=== PATIENT | female | born 1995 | race Caucasian/White ===

== ENCOUNTER 2016-11-12 17:12 | Emergency (ER) | payer SELFPAY ==
[2016-11-12 17:22] VITALS: BP 119/64; PULSE 90; RESP 18; TEMP 98; O2SAT 100
[2016-11-12] MEDS: Sodium Chloride 0.9% 1,000 ML IV ONE (17:50)
[2016-11-12 18:02] LABS: BASO % 0.4 % (0.0-2.0); EOS # 0.1 K/uL (0.0-0.7); EOS % 1.4 % (0.0-4.0); HEMATOCRIT 38.8 % (34.0-47.0); LYMPH # 2.6 K/uL (1.0-4.3); LYMPH % 33.5 % (20.0-40.0); MEAN CELL VOLUME 93.4 fL (81.0-99.0); MEAN CORPUSCULAR HEMOGLOBIN 31.3 pg (27.0-31.0); MEAN CORPUSCULAR HGB CONC 33.5 g/dL (33.0-37.0); MEAN PLATELET VOLUME 9.4 fL (7.2-11.7); MONO # 0.5 K/uL (0.0-0.8); MONO % 5.8 % (0.0-10.0); NRBC % 0.1 % (0.0-2.0); RED CELL DISTRIBUTION WIDTH 12.9 % (11.5-14.5); WHITE BLOOD COUNT 7.9 K/uL (4.8-10.8)
[2016-11-12 18:06] LABS: RBC URINE 2 /hpf (0-3); URINE BACTERIA RARE (<OCC); URINE BILIRUBIN NEGATIVE (NEGATIVE); URINE BLOOD NEGATIVE (NEGATIVE); URINE COLOR Yellow (YELLOW); URINE GLUCOSE (UA) NORMAL (Normal); URINE KETONE NEGATIVE (NEGATIVE); URINE LEUKOCYTE ESTERASE NEG Leu/uL (Negative); URINE PROTEIN NEGATIVE (NEGATIVE); URINE UROBILINOGEN NORMAL mg/dL (0.2-1.0); WBC URINE 2 /hpf (0-5)
[2016-11-12 18:09] LABS: CHLORIDE 99 mmol/L (98-107); SODIUM 134 mmol/L (132-148)
[2016-11-12 18:11] LABS: GFR AFRICAN-AMERICAN > 60
[2016-11-12 18:12] LABS: ALB/GLOB RATIO 1.2 (1.0-2.1); ALKALINE PHOSPHATASE 35 U/L (38-126); ALT/SGPT 15 U/L (9-52); AST/SGOT 31 U/L (14-36); BILIRUBIN,TOTAL 0.7 mg/dL (0.2-1.3); BLOOD UREA NITROGEN 7 mg/dL (7-17); CALCIUM 8.4 mg/dl (8.6-10.4); CARBON DIOXIDE 25 mmol/L (22-30); GLUCOSE,RANDOM 81 mg/dL (65-105); TOTAL PROTEIN 7.1 g/dL (6.3-8.3)
--- NOTE | 2016-11-12 18:17 | C.PDOC ---
History Of Present Illness 21-year-old female, (, 10-weeks; LMP 09/01), presents to the emergency department with complaints of generalized weakness for the past few days. Patient denies nausea/vomiting, fevers, chills, shortness of breath, chest pain, dizziness, abdominal pain, vaginal bleeding/discharge or any other associated symptoms. No other complaints at this time. Chief Complaint (Nursing): Dizziness/Lightheaded History Per: Patient History/Exam Limitations: no limitations Onset/Duration Of Symptoms: Days Current Symptoms Are (Timing): Still Present Past Medical History Reviewed: Historical Data, Nursing Documentation, Vital Signs Vital Signs: Last Vital Signs Temp 98 F 11/12/16 17:21 Pulse 90 11/12/16 17:21 Resp 18 11/12/16 17:21 BP 119/64 11/12/16 17:21 Pulse Ox 100 11/12/16 18:50 Family History: States: No Known Family Hx - Social History Hx Alcohol Use: No Hx Substance Use: No - Immunization History Hx Tetanus Toxoid Vaccination: No Hx Influenza Vaccination: Yes Hx Pneumococcal Vaccination: No Review Of Systems Except As Marked, All Systems Reviewed And Found Negative. Constitutional: Positive for: Weakness. Negative for: Fever Cardiovascular: Negative for: Chest Pain Respiratory: Negative for: Cough, Shortness of Breath Gastrointestinal: Negative for: Nausea, Vomiting, Abdominal Pain Genitourinary: Negative for: Dysuria, Hematuria, Vaginal Discharge, Vaginal Bleeding Physical Exam - Physical Exam Appears: Non-toxic, No Acute Distress Skin: Warm, Dry, No Rash Eye(s): bilateral: Normal Inspection Nose: Normal Oral Mucosa: Moist Lips: Normal Appearing Neck: Normal ROM Cardiovascular: Rhythm Regular, No Murmur Respiratory: Normal Breath Sounds, No Accessory Muscle Use Gastrointestinal/Abdominal: Soft, No Tenderness Extremity: Normal ROM Neurological/Psych: Oriented x3 ED Course And Treatment - Laboratory Results Result Diagrams: 11/12/16 17:56 11/12/16 17:56 ECG: Interpreted By Me, Viewed By Me ECG Rhythm: Sinus Rhythm ECG Interpretation: No Acute Changes Rate From EC O2 Sat by Pulse Oximetry: 100 (on RA) Medical Decision Making Medical Decision Makin:50pm - Patient feeling better. Labs reviewed. Patient to be discharged with follow up instructions. Disposition - Disposition Referrals: [facility], [Non-Staff] - Disposition Time: 18:50 Condition: IMPROVED Additional Instructions: Thank you for letting us take care of you today. Your provider was Dr. Healy. The emergency medical care you received today was directed at your acute symptoms. If you were prescribed any medication, please fill it and take as directed. It may take several days for your symptoms to resolve. Return to the Emergency Department if your symptoms worsen, do not improve, or if you have any other problems. Please contact your doctor or call one of the physicians/clinics you have been referred to that are listed on the Patient Visit Information form that is included in your discharge packet. Bring any paperwork you were given at discharge with you along with any medications you are taking to your follow up visit. Our treatment cannot replace ongoing medical care by a primary care provider (PCP) outside of the emergency department. Thank you for allowing the [facility] team to be part of your care today. Follow up with your [facility]UDDER doctor in 3-4 days for re-evaluation. Instructions: (ED) - Clinical Impression Clinical Impression: Musculoskeletal arm pain, - Scribe Statement The provider has reviewed the documentation as recorded by the Damion Alvarez All medical record entries made by the Damion were at my direction and personally dictated by me. I have reviewed the chart and agree that the record accurately reflects my personal performance of the history, physical exam, medical decision making, and the department course for this patient. I have also personally directed, reviewed, and agree with the discharge instructions and disposition.
[2016-11-12 18:26] LABS: TROPONIN I 0.026 ng/mL (0.00-0.120)
[2016-11-12] MEDS ORDERED: Sodium Chloride 0.9% 1,000 ML ONE (18:39)
== END 2016-11-12 19:11 | disposition home or self-care (01) ==
LOC: C.ER 17:12
DX: O26.91 Pregnancy related conditions, unspecified, first trimester (principal); Z3A.10 10 weeks gestation of pregnancy; M79.603 Pain in arm, unspecified
CPT/HCPCS: 80053; 81001; 82948; 83690; 84484; 84702; 85025; 99285; J7040

== ENCOUNTER 2017-01-14 10:20 | Emergency (ER) | payer MEDICAID ==
[2017-01-14 10:31] VITALS: O2SAT 100
--- NOTE | 2017-01-14 10:54 | C.PDOC ---
History Of Present Illness 21 y/o female presents to ED with complaints of feeling nauseous while at work today. Patient is 19 weeks and when symptms developed she became concern something was wrong with and came to ED for evaluation. Patient denies fever, chills, vaginal bleeding, urinary symptoms, vomiting, diarrhea or any other complaints at this time. Time Seen by Provider: 01/14/17 10:34 Chief Complaint (Nursing): Abdominal Pain History Per: Patient History/Exam Limitations: no limitations Onset/Duration Of Symptoms: Hrs Current Symptoms Are (Timing): Still Present Past Medical History Reviewed: Historical Data, Nursing Documentation, Vital Signs Vital Signs: Last Vital Signs Temp 98.5 F 01/14/17 11:33 Pulse 82 01/14/17 11:33 Resp 18 01/14/17 11:33 BP 114/68 01/14/17 11:33 Pulse Ox 100 01/14/17 11:33 - Medical History PMH: No Chronic Diseases Surgical History: No Surg Hx Family History: States: No Known Family Hx - Social History Hx Alcohol Use: No Hx Substance Use: No - Immunization History Hx Tetanus Toxoid Vaccination: No Hx Influenza Vaccination: Yes Hx Pneumococcal Vaccination: No Review Of Systems Except As Marked, All Systems Reviewed And Found Negative. Constitutional: Negative for: Fever, Chills Gastrointestinal: Positive for: Nausea. Negative for: Vomiting Genitourinary: Negative for: Dysuria, Frequency, Vaginal Bleeding Musculoskeletal: Negative for: Back Pain Skin: Negative for: Rash Physical Exam - Physical Exam Appears: Non-toxic, No Acute Distress Skin: Normal Color, Warm, No Rash Head: Atraumatic, Normacephalic Oral Mucosa: Moist Throat: Normal Chest: Symmetrical Cardiovascular: Rhythm Regular Respiratory: Normal Breath Sounds, No Rales, No Rhonchi, No Wheezing Gastrointestinal/Abdominal: Soft, No Tenderness, No Guarding, No Rebound Extremity: Normal ROM Neurological/Psych: Oriented x3, Normal Speech Additional Physical Exam Comments: Ultrasound at bedside done: heartbeat and movement normal ED Course And Treatment O2 Sat by Pulse Oximetry: 100 (RA) Pulse Ox Interpretation: Normal Progress Note: treated with zofran PO. Bedside US (+) FHB 149, (+) movement. On re-evaluation abdomen soft Reassessment Condition: Improved Medical Decision Making Medical Decision Making: Plan: * UA * Zofran Disposition Counseled Patient/Family Regarding: Diagnosis, Need For Followup - Disposition Referrals: [facility] [Outside] [facility] [Outside] Disposition: HOME/ ROUTINE Disposition Time: 11:40 Condition: STABLE Additional Instructions: Follow up at clinic for further evaluation Instructions: Morning Sickness (ED) Forms: [facility] (Prydeinig), Work Excuse - POA Present On Arrival: None - Clinical Impression Clinical Impression: Nausea, - Scribe Statement The provider has reviewed the documentation as recorded by the Jaceyibjennifer Gudino All medical record entries made by the Jaceyibjennifer were at my direction and personally dictated by me. I have reviewed the chart and agree that the record accurately reflects my personal performance of the history, physical exam, medical decision making, and the department course for this patient. I have also personally directed, reviewed, and agree with the discharge instructions and disposition.
[2017-01-14 11:17] LABS: RBC URINE < 1 /hpf (0-3); URINE BACTERIA RARE (<OCC); URINE BILIRUBIN NEGATIVE (NEGATIVE); URINE BLOOD NEGATIVE (NEGATIVE); URINE COLOR Straw (YELLOW); URINE GLUCOSE (UA) NORMAL (Normal); URINE KETONE NEGATIVE (NEGATIVE); URINE LEUKOCYTE ESTERASE NEG Leu/uL (Negative); URINE PROTEIN NEGATIVE (NEGATIVE); URINE UROBILINOGEN NORMAL mg/dL (0.2-1.0); WBC URINE 1 /hpf (0-5)
[2017-01-14 11:34] VITALS: BP 114/68; PULSE 82; RESP 18; TEMP 98.5
== END 2017-01-14 11:42 | disposition home or self-care (01) ==
LOC: C.ER 10:20
DX: O26.892 Other specified pregnancy related conditions, second trimester (principal); R11.0 Nausea; Z3A.19 19 weeks gestation of pregnancy

== ENCOUNTER 2017-05-12 19:00 | Emergency (ER) | payer MEDICAID, OTHER ==
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
[2017-05-12] MEDS ORDERED: Lactated Ringer's 1,000 ML IV ONE (21:08)
[2017-05-12 21:36] LABS: BASO % 0.3 % (0.0-2.0); EOS % 0.4 % (0.0-4.0); HEMATOCRIT 37.6 % (34.0-47.0); LYMPH # 2.1 K/uL (1.0-4.3); LYMPH % 26.4 % (20.0-40.0); MEAN CELL VOLUME 94.1 fL (81.0-99.0); MEAN PLATELET VOLUME 10.5 fL (7.2-11.7); MONO # 0.4 K/uL (0.0-0.8); MONO % 5.6 % (0.0-10.0); NRBC % 0.1 % (0.0-2.0); RED CELL DISTRIBUTION WIDTH 12.6 % (11.5-14.5); WHITE BLOOD COUNT 7.8 K/uL (4.8-10.8)
[2017-05-12 21:48] LABS: INR 0.9
[2017-05-12 22:27] LABS: RBC URINE < 1 /hpf (0-3); URINE BILIRUBIN NEGATIVE (NEGATIVE); URINE BLOOD NEGATIVE (NEGATIVE); URINE COLOR Straw (YELLOW); URINE GLUCOSE (UA) NORMAL (Normal); URINE KETONE NEGATIVE (NEGATIVE); URINE LEUKOCYTE ESTERASE NEG Leu/uL (Negative); URINE PROTEIN NEGATIVE (NEGATIVE); URINE UROBILINOGEN NORMAL mg/dL (0.2-1.0); WBC URINE < 1 /hpf (0-5)
--- NOTE | 2017-05-13 00:02 | US ---
EXAM: US After First Trimester, Transabdominal CLINICAL HISTORY: 22 years old, female; Injury or trauma; Fall; Injury indication: S/P fall; TECHNIQUE: Real-time transabdominal obstetrical ultrasound of the maternal pelvis and a second or third trimester with image documentation. COMPARISON: No relevant prior studies available. FINDINGS: Fetus: Single live intrauterine gestation. Heart rate: heart rate of 140 beats per minute. Presentation: Cephalic. Placenta: Fundal placenta. No placenta previa or abruption. Amniotic fluid: ROSHAN = 14.9 cm. Anatomy: No gross anomaly is appreciated. BIOMETRICS Gestational age by US: Estimated gestational age of 36 weeks 1 day by measurements. EFW: Estimated weight of 2724 g. BPD: 9.0 cm, correlating with 36 weeks 4 days. HC: 32.4 cm, correlating with 36 weeks 5 days. AC: 31.1 cm, correlating with 35 weeks 0 days. FL: 7.0 cm, correlating with 36 weeks 0 days. MATERNAL: Uterus: Unremarkable. No myometrial mass. Cervix: Closed cervix. Cervical length = 2.7 cm. Free fluid: No free fluid. IMPRESSION: 1. Single live intrauterine gestation. EXAM: US Biophysical Profile Without Non-Stress Testing CLINICAL HISTORY: 22 years old, female; Injury or trauma; Fall; Injury indication: S/P fall; TECHNIQUE: Real-time ultrasound of the maternal pelvis for biophysical profile evaluation with image documentation. COMPARISON: No relevant prior studies available. FINDINGS: breathing movements: Present. Score 2/2. Gross body movements: Present. Score 2/2. tone: Present. Score 2/2. Qualitative amniotic fluid volume: Within normal limits. Score 2/2. IMPRESSION: Normal biophysical profile ultrasound. Score 8/8.
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
[2017-05-13 06:02] VITALS: O2SAT 100
[2017-05-13 12:19] VITALS: BP 108/65; PULSE 87; RESP 18; TEMP 99.3
== END 2017-05-13 08:19 | disposition home or self-care (01) ==
LOC: C.ER 19:00 → C.EROB 19:00
DX: S30.0XXA Contusion of lower back and pelvis, initial encounter (principal); V09.20XA Pedestrian injured in traffic accident involving unspecified motor vehicles, initial encounter; O26.893 Other specified pregnancy related conditions, third trimester; Z3A.36 36 weeks gestation of pregnancy
CPT/HCPCS: 76815; 76818; 81001; 85025; 85384; 85610; 85730; 86850; 86900; 96360; 99285; G0480; J7120

== ENCOUNTER 2017-06-09 01:53 | Inpatient (IN) | payer MEDICAID, OTHER ==
[2017-06-09] MEDS ORDERED: Penicillin G 5 Million Unit Vial IVPB ONE (02:59)
[2017-06-09 03:00] VITALS: BMI 31.8
[2017-06-09] MEDS ORDERED: Lactated Ringer's 1,000 ML IV SCH ×2 (03:00)
[2017-06-09] MEDS ORDERED: Oxytocin 30 UNIT 30 UNITS/500 ML BAG IV PRN (03:03)
[2017-06-09] MEDS ORDERED: Penicillin G Potassium 2.5 MU in Dextrose 5% In Water 50 ML IV SCH (03:15)
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
[2017-06-09 03:50] LABS: BASO % 0.5 % (0.0-2.0); EOS # 0.1 K/uL (0.0-0.7); EOS % 0.7 % (0.0-4.0); HEMOGLOBIN 12.8 g/dL (11.0-16.0); LYMPH # 2.5 K/uL (1.0-4.3); LYMPH % 30.3 % (20.0-40.0); MEAN CELL VOLUME 93.8 fL (81.0-99.0); MEAN CORPUSCULAR HEMOGLOBIN 31.8 pg (27.0-31.0); MEAN CORPUSCULAR HGB CONC 33.9 g/dL (33.0-37.0); MEAN PLATELET VOLUME 10.6 fL (7.2-11.7); MONO # 0.7 K/uL (0.0-0.8); MONO % 8.6 % (0.0-10.0); NEUT % 59.9 % (50.0-75.0); NRBC % 0.1 % (0.0-2.0); RBC 4.03 Mil/uL (3.80-5.20); WHITE BLOOD COUNT 8.3 K/uL (4.8-10.8)
[2017-06-09 03:53] LABS: SQUAMOUS EPITHIAL 2 /hpf (0-5); URINE BILIRUBIN NEGATIVE (NEGATIVE); URINE BLOOD NEGATIVE (NEGATIVE); URINE CLARITY Clear (Clear); URINE COLOR Yellow (YELLOW); URINE GLUCOSE (UA) NORMAL (Normal); URINE LEUKOCYTE ESTERASE NEG Leu/uL (Negative); URINE NITRATE NEGATIVE (NEGATIVE); URINE PROTEIN NEGATIVE (NEGATIVE); URINE UROBILINOGEN NORMAL mg/dL (0.2-1.0)
[2017-06-09 04:02] LABS: ALBUMIN 3.3 g/dL (3.5-5.0); ALT/SGPT 29 U/L (9-52); AST/SGOT 38 U/L (14-36); CALCIUM 8.8 mg/dl (8.6-10.4); GFR AFRICAN-AMERICAN > 60; GFR NON-AFRICAN AMERICAN > 60
[2017-06-09 04:13] LABS: BARBITURATES, UR NEGATIVE (NEGATIVE); BENZODIAZEPINES, UR NEGATIVE (NEGATIVE); BLOOD UREA NITROGEN 7 mg/dL (7-17); OPIATES, UR NEGATIVE (NEGATIVE); PHENCYCLIDINE, UR NEGATIVE (NEGATIVE)
--- NOTE | 2017-06-09 07:57 | OBDS ---
DELIVERY PERSONNEL Delivery Doctor: Marilyn Del Rio MD Tooth Cutter: Brittney Phillips RN MATERNAL INFORMATION Estimated Blood Loss (ml): 200 Placenta Cultured: No Maternal Complications: None Provider Comments: Uncomplicated spontaneous vaginal delivery of a viable male infant with BW of 7Ib 10oz, scores of 9 and 9. Intact perineum. LABOR SUMMARY EDC: 06/08/2017 00:00 No. Babies in Womb: 1 Attempted: No Labor Anesthesia: None LABOR INFORMATION Reason for Induction: Not Applicable (Annotations: Data stored by [facility] on behalf of user) Onset of Labor: 06/09/2017 00:00 Oxytocin: Augmentation Group B Beta Strep: Positive Antibiotics # of Doses: 1 Steroids Given: None Reason Steroids Not Administered: Not Applicable MEMBRANES Rupture of Membranes: 06/09/2017 07:25 Length of Rupture (hrs): 0.05 Amniotic Fluid Color: Bloody Amniotic Fluid Amount: Moderate Amniotic Fluid Odor: Normal STAGES OF LABOR Stage 3 hrs: 0 Stage 3 min: 5 Total Time in Labor hrs: 7 Total Time in Labor min: 33 BABY A INFORMATION Infant Delivery Date/Time: 06/09/2017 07:28 Method of Delivery: Vaginal Born in Route : No : N/A Forceps: N/A Vacuum Extraction: N/A Shoulder Dystocia : No SHOULDER DYSTOCIA BABY A Delivery Date/Time: 06/09/2017 07:28 PRESENTATION/POSITION BABY A Presentation: Cephalic Cephalic Presentation: Face Vertex Position: Left Occipital Anterior Breech Presentation: N/A PLACENTA INFORMATION BABY A Placenta Delivery Time : 06/09/2017 07:33 Placenta Method of Delivery: Spontaneous Placenta Status: Delivered SCORES BABY A Heart Rate 1 min: >100 bpm Resp Effort 1 min: Good Cry Reflex Irritability 1 min: Cough or Sneeze or Pulls Away Muscle Tone 1 min: Active Motion Color 1 min: Body [place], Extremities Blue Resuscitation Effort 1 min: Tactile Stimulation SCORE 1 MIN: 9 Heart Rate 5 min: >100 bpm Resp Effort 5 min: Good Cry Reflex Irritability 5 min: Cough or Sneeze or Pulls Away Muscle Tone 5 min: Active Motion Color 5 min: Body [place], Extremities Blue Resuscitation Effort 5 min: N/A SCORE 5 MIN: 9 INFANT INFORMATION BABY A Gestational Age at Delivery: 40.1 Gestational Status: Post-term Infant Outcome : Liveborn Infant Condition : Stable Sex: Male IDENTIFICATION/MEDS BABY A ID Band Number: [id number] ID Band Location: Left Leg; Left Arm Sensor Applied: Yes Sensor Number: [id number] Sensor Location : Cord Clamp Vitamin K Given : Not Given Erythromycin Given: Not Given WEIGHT/LENGTH BABY A Infant Birthweight (gms): 3470 Infant Weight (lb): 7 Weight (oz): 10 Infant Length Inches: 21.00 Length cms: 53.3 CORD INFORMATION BABY A No. Cord Vessels: 3 Nuchal Cord : N/A Infant Suction: Mouth; Nose
[2017-06-10 09:12] LABS: BASO # 0.1 K/uL (0.0-0.2); BASO % 0.7 % (0.0-2.0); EOS # 0.1 K/uL (0.0-0.7); EOS % 0.6 % (0.0-4.0); HEMOGLOBIN 11.1 g/dL (11.0-16.0); LYMPH # 2.7 K/uL (1.0-4.3); LYMPH % 23.6 % (20.0-40.0); MEAN CORPUSCULAR HEMOGLOBIN 31.4 pg (27.0-31.0); MEAN CORPUSCULAR HGB CONC 33.1 g/dL (33.0-37.0); MEAN PLATELET VOLUME 10.2 fL (7.2-11.7); MONO # 0.9 K/uL (0.0-0.8); MONO % 7.6 % (0.0-10.0); NEUT # 7.7 K/uL (1.8-7.0); NEUT % 67.5 % (50.0-75.0); NRBC % 0.1 % (0.0-2.0); RBC 3.55 Mil/uL (3.80-5.20); RED CELL DISTRIBUTION WIDTH 13.4 % (11.5-14.5); WHITE BLOOD COUNT 11.4 K/uL (4.8-10.8)
--- NOTE | 2017-06-10 13:17 | OBPPN ---
Datetime: 06/10/2017 13:10 PP Pain Prov: Within normal limits PP Nausea Prov: Denies PP Flatus Prov: Yes PP BM Prov: No PP Breasts Prov: Normal PP Heart Prov: Normal PP Lungs Prov: Normal PP Abdomen/Uterus Prov: Normal PP Lochia Prov: Normal PP Vulva/Perineum Prov: Not Done PP CVA Tenderness Prov: Normal PP Extremities Prov: Normal PP C/S Incision Prov: Not Applicable PP Progress Prov: Normal PP Comments Phys Exam Prov: Abdomen: Soft. non distended. Fundus firm, mobile, non tender 2 FB below umbilicus. Mild lochia rubra All other systems reviewed and are negative PP Impression Prov: Normal progression PP Plan Prov: Continue present management PP Progress Note Prov: Patient received in bed, room 459; pumping her breasts. . Carlos es nausea, vomiting. Ambulating (not yet out of the room); voiding without difficulty. P.E.: as above. Mildy obese in NAD. Awake, alert, oriented to time, person and place. Cooperative . FOB present - PPD#1 H/H 11.1/33.7; Rh(+) Assessment: PPD#1, 22 y.o. P1, S/P . Afebrile, vital signs stable. Clinically stable. Desire s circumcision for ; consent obtained for same. Plan: 1) Continue resent management 2) Anticipate discharge home 06/11/17 Vital Signs Provider PP: Reviewed; Within Normal Limits
[2017-06-11] MEDS ORDERED: Influenza Vaccine 60 mcg/0.5 mL SYR (4YR UP) IM ONE (09:57)
--- NOTE | 2017-06-11 10:36 | OBDCSUM ---
Datetime: 06/11/2017 08:15 Discharged to, Provider: Home Follow up at, Provider: viri Disch Instr Activity: Normal activity Disch Instr Diet: Regular Discharge Instructions, Provider: Routine instructions given Discharge Diagnosis, Provider: Term Delivered Follow up in weeks, Provider: 6 weeks Disch Activity Restrictions: No sexual activity; Nothing in vagina - [place], tampons, douche Discharge Comment, Provider: p: d/c home f/u 4-6wks at [address] pp instructions benefits of d/w pt. Contraception after Delivery: Undecided
--- NOTE | 2017-06-11 10:36 | OBPPN ---
Datetime: 06/11/2017 10:30 PP Pain Prov: Within normal limits PP Nausea Prov: Denies PP Flatus Prov: Yes PP Breasts Prov: Normal PP Heart Prov: Normal PP Lungs Prov: Normal PP Abdomen/Uterus Prov: Normal PP Lochia Prov: Normal PP CVA Tenderness Prov: Normal PP Extremities Prov: Normal PP Progress Prov: Normal PP Impression Prov: Normal progression PP Plan Prov: Discharge PP Progress Note Prov: s: tolerating reg diet. no c/o. +pumping i: s/p doing well p: d/c home f/u 4-6wks at clinic rout pp instructions benefits of d/w pt. may take otc motrin for pain IP PP Procedures: None Vital Signs Provider PP: Within Normal Limits
[2017-06-12 09:00] VITALS: BP 115/71; PULSE 80; RESP 18; TEMP 97.9; O2SAT 99
[2017-06-12] MEDS ORDERED: Benzocaine/Menthol 20%-0.5% Topical Spray (60 ml) TOP SCH (11:45)
== END 2017-06-12 13:00 | disposition home or self-care (01) | DRG 373 ==
LOC: C.EROB 01:53 → C.4D 02:54 → C.4M 10:00
PROVIDERS: ADMIT Obstetrics & Gynecology; ATTEND Obstetrics & Gynecology
PROC: 10E0XZZ Delivery of Products of Conception, External Approach (ICD-10-PCS; principal; 2017-06-09)
DX: O63.0 Prolonged first stage (of labor) (principal); O48.0 Post-term pregnancy; O99.214 Obesity complicating childbirth; O99.824 Streptococcus B carrier state complicating childbirth; Z37.0 Single live birth; Z3A.40 40 weeks gestation of pregnancy